=== PATIENT | female | born 1965 | race Caucasian/White ===

== ENCOUNTER 2018-03-18 10:53 | Emergency (ER) | payer BC, OTHER ==
[2018-03-18 11:06] VITALS: BP 139/74
--- NOTE | 2018-03-18 11:13 | UC ---
Skin Complaint HPI - HPI Summary HPI Summary: Pt presents with tick bite to left hip. She tells me that she was doing yardwork all day yesterday - does not remember being bitten, but was showering this morning and noticed a tick on her left hip. Her removed the tick. She is here asking if she needs further treatment. Denies fever, chills, bleeding/drainage from the site. - History of Current Complaint Chief Complaint: UCSkin Time Seen by Provider: 03/18/18 11:12 Stated Complaint: TICK BITE Hx Obtained From: Patient Onset/Duration: Sudden Onset Current Severity: None Pain Intensity: 0 - Allergy/Home Medications Allergies/Adverse Reactions: Allergies Allergy/AdvReac Type Severity Reaction Status Date / Time No Known Allergies Allergy Verified 03/18/18 11:10 Home Medications: Home Medications Standard Process 1 tab PO DAILY 03/18/18 [History Confirmed 03/18/18] Review of Systems Constitutional: Negative Skin: Other - Erythema skin left hip Respiratory: Negative Cardiovascular: Negative Gastrointestinal: Negative Neurovascular: Negative Musculoskeletal: Negative Neurological: Negative Psychological: Negative All Other Systems Reviewed And Are Negative: Yes PMH/Surg Hx/FS Hx/Imm Hx - Additional Past Medical History Additional PMH: None Previously Healthy: Yes - Surgical History Surgical History: Yes Surgery Procedure, Year, and Place: Appendectomy 1989; Polyp removal, fibroid - Family History Known Family History: Positive: None - Social History Occupation: Employed Full-time Lives: With Family Alcohol Use: Daily Alcohol Amount: wine Substance Use Type: None Smoking Status (MU): Never Smoked Tobacco Physical Exam - Summary Physical Exam Summary: GENERAL: NAD. WDWN. No pain distress. SKIN: Left hip around the ASIS, there is a 1.0cm diameter area of erythema with central scab. No FB, bleeding, streaking, or drainage. NECK: Supple. Nontender. No lymphadenopathy. CHEST: CTAB. No r/r/w. No accessory muscle use. Breathing comfortably and in no distress. CV: RRR. Without m/r/g. Pulses intact. Brisk cap refill. NEURO: Alert. CN II-XII grossly intact. PSYCH: Age appropriate behavior. Triage Information Reviewed: Yes Vital Signs: Initial Vital Signs Temp 98.1 F 03/18/18 11:00 Pulse 68 03/18/18 11:00 Resp 16 03/18/18 11:00 BP 139/74 03/18/18 11:00 Pulse Ox 99 03/18/18 11:00 Course/Dx - Course Course Of Treatment: Pt brought tick with her - does not appear engorged. Bite site is with local skin reaction. No need for treatment at this time as tick was likely on her person less than 24 hours. - Diagnoses Provider Diagnoses: Tick bite Discharge - Sign-Out/Discharge Documenting (check all that apply): Discharge/Admit/Transfer - Discharge Plan Condition: Stable Disposition: HOME Patient Education Materials: Tick Bite (ED) Referrals: No Primary Care Phys,NOPCP [Primary Care Provider] - Additional Instructions: If you develop a fever, shortness of breath, chest pain, new or worsening symptoms - please call your PCP or go to the ED. TICK BITE: You have been bitten by a tick. Once the tick is removed, these "bites" usually cause no problems. Tick fever, tick paralysis, [place] Spotted fever, and Lyme disease are uncommon -- but you should mention this tick bite to your doctor if you develop unusual symptoms in the next several weeks. If you develop any of the following, please see your physician promptly: (1) Fever, chills, or generalized malaise associated with a headache. (2) A red round area at the site of the bite (or elsewhere) (3) Joint pain, joint swelling or generalized weakness. (4) Redness, swelling, or drainage at the site of the bite. - Billing Disposition and Condition Condition: STABLE Disposition: HOME
== END 2018-03-18 11:23 | disposition home or self-care (01) ==
LOC: UCEAST 10:53
DX: S70.262A Insect bite (nonvenomous), left hip, initial encounter (principal); W57.XXXA Bitten or stung by nonvenomous insect and other nonvenomous arthropods, initial encounter; Y93.H9 Activity, other involving exterior property and land maintenance, building and construction; Y92.007 Garden or yard of unspecified non-institutional (private) residence as the place of occurrence of the external cause
CPT/HCPCS: 99211; G0463